=== PATIENT | male | born 1945 | race Caucasian/White ===

== ENCOUNTER 2024-01-07 21:00 | Inpatient (IN) ==
[2024-01-07] MEDS ORDERED: Dextrose 50% Syringe 50 ml 25 GM/50 ML SYRINGE IV PUSH PRN (21:27)
[2024-01-07] MEDS ORDERED: Senna TAB 8.6 mg TAB PO PRN (21:44)
[2024-01-07] MEDS ORDERED: Polyethylene Glycol 3350 17 GM PACKET PO PRN (21:44)
[2024-01-07] MEDS ORDERED: Vancomycin 2,000 MG in NS 0.9% 500 ml BAG 500 ML IVPB ONE (23:00)
[2024-01-07] MEDS ORDERED: Vancomycin per Pharmacy 1 EA NOTE FOLLOW UP SCH (23:00)
[2024-01-07] MEDS ORDERED: Zosyn per Pharmacy NOTE FOLLOW UP SCH (23:00)
[2024-01-07] MEDS: Heparin 5000 UNITS/ML 1 mL VIAL SUBCUT ONE (23:13)
[2024-01-07] MEDS: Acetaminophen IV 1 GM/100ML 1,000 MG/100 ML BAG IV PRN (23:21)
[2024-01-07 23:40] LABS: ABS Basophils 0.2 10^3/uL (0.0-0.1); ABS Eosinophils 0.2 10^3/uL (0.0-0.5); ABS Lymphocytes 0.9 10^3/uL (1.0-4.8); ABS Monocytes 1.5 10^3/uL (0.0-1.1); Eosinophil % 1.1 %; Hematocrit 26.7 % (38-53); Hemoglobin 8.6 g/dL (13.2-16.3); Lymphocyte % 4.9 %; Mean Corpuscular Hemoglobin 18.7 pg (27-33); Mean Corpuscular Hgb Conc 32.1 g/dL (31-36); Mean Corpuscular Volume 58.4 fL (80-97); Mean Platelet Volume 8.2 fL (7.5-11.2); Platelet Count 442 10^3/uL (150-450); Red Blood Count 4.57 10^6/uL (4.06-5.63); Red Cell Distribution Width 16.7 % (12-17); White Blood Count 18.7 10^3/uL (3.6-10.2)
[2024-01-07 23:43] LABS: Activated Partial Thrombo Time 31.3 seconds (26.0-38.0); INR 1.27 (0.83-1.13)
[2024-01-07] MEDS: Cefepime 2 GM in Dextrose 2 GM/50 ML BAG IV SCH (23:48)
[2024-01-08] MEDS ORDERED: Dextrose 50% Syringe 50 ml 25 GM/50 ML SYRINGE IV PUSH PRN (00:02)
[2024-01-08 00:10] LABS: Blood Urea Nitrogen 62 mg/dL (6-24); Creatinine, Serum 3.25 mg/dL (0.67-1.17); eGFR CKD-EPI 18.5 (>60)
[2024-01-08] MEDS: metroNIDAZOLE IV 500 MG/100ML 500 MG/100 ML BAG IVPB SCH ×2 (00:35→15:53)
[2024-01-08 00:36] LABS: Creatine Kinase 51 U/L (10-223)
[2024-01-08] MEDS: Lactated Ringers 1000 ml BAG 1,000 ML IV SCH (01:54)
[2024-01-08 03:33] LABS: Urine Appearance Clear; Urine Bilirubin Negative (Negative); Urine Blood Trace (Negative); Urine Color Light-Yellow; Urine Glucose 1+ (>=70 mg/dL) (Negative); Urine Ketones Negative (Negative); Urine Nitrite Negative (Negative); Urine Protein 2+ (>=100 mg/dL) (Negative); Urine Specific Gravity 1.014 (1.002-1.030); Urine Urobilinogen Negative (Negative); Urine pH 5.5 (5.0-8.0)
[2024-01-08 04:11] LABS: Urine Bacteria Absent /HPF (Absent); Urine Red Blood Cell Absent /HPF (0-Trace); Urine Squamous Epithelial Cell Present /HPF (Absent); Urine White Blood Cell Absent /HPF (0-Trace)
[2024-01-08 04:13] LABS: ABS Basophils 0.1 10^3/uL (0.0-0.1); ABS Eosinophils 0.3 10^3/uL (0.0-0.5); ABS Lymphocytes 1.1 10^3/uL (1.0-4.8); ABS Monocytes 1.6 10^3/uL (0.0-1.1); Eosinophil % 1.4 %; Hemoglobin 8.9 g/dL (13.2-16.3); Lymphocyte % 5.9 %; Mean Corpuscular Hemoglobin 18.4 pg (27-33); Mean Corpuscular Hgb Conc 31.7 g/dL (31-36); Mean Corpuscular Volume 58.1 fL (80-97); Mean Platelet Volume 8.6 fL (7.5-11.2); Platelet Count 488 10^3/uL (150-450); Red Blood Count 4.83 10^6/uL (4.06-5.63); Red Cell Distribution Width 16.7 % (12-17); White Blood Count 19.1 10^3/uL (3.6-10.2)
[2024-01-08 04:18] LABS: Albumin 2.7 g/dL (3.2-5.2); Albumin/Globulin Ratio 0.8 (1-3); Calcium 7.9 mg/dL (8.6-10.3); Creatinine, Serum 3.13 mg/dL (0.67-1.17); Globulin 3.3 g/dL (2-4); Magnesium 1.8 mg/dL (1.9-2.7); Phosphorus 4.5 mg/dL (2.5-5.0); Total Bilirubin 0.3 mg/dL (0.2-1.0); Vancomycin Random 7.7 mcg/mL; eGFR CKD-EPI 19.3 (>60)
[2024-01-08 06:28] LABS: % Iron Saturation 16 % (15-55); .Transferrin 92 mg/dL (203-362); Iron < 20 ug/dL (50-212); Total Iron Binding Capacity 129 mcg/dL (250-450); Unsaturated Iron Binding 109 ug/dL
[2024-01-08 06:48] LABS: Ferritin 474.6 ng/mL (24-336)
[2024-01-08] MEDS: Magnesium Sulfate 2 gm BAG 2 GM/50 ML BAG IVPB ONE (08:53)
[2024-01-08] MEDS ORDERED: Sulfur Hexaflouride MICROSPHR 25 MG VIAL ONE (09:27)
[2024-01-08] MEDS: Vancomycin 1000 MG in NS 0.9% 250 ML IVPB ONE (11:50)
[2024-01-08] MEDS: Vancomycin Random Level NOTE FOLLOW UP ONE (12:33)
[2024-01-08] MEDS ORDERED: Enoxaparin 100 MG/ML SYR SUBCUT SCH (15:00)
[2024-01-08] MEDS: Morphine 2 MG/ML SYRINGE IV PRN (15:52)
[2024-01-08] MEDS: Furosemide 40 mg/4 ml IV VIAL IV SLOW PU ONE (15:53)
[2024-01-09] MEDS: Furosemide 20 mg/2 ml IV VIAL IV ONE (00:57)
[2024-01-09 05:53] LABS: Hematocrit 29.9 % (38-53); Hemoglobin 9.4 g/dL (13.2-16.3); Mean Corpuscular Hemoglobin 18.3 pg (27-33); Mean Corpuscular Hgb Conc 31.4 g/dL (31-36); Mean Corpuscular Volume 58.3 fL (80-97); Mean Platelet Volume 8.5 fL (7.5-11.2); Platelet Count 551 10^3/uL (150-450); Red Blood Count 5.12 10^6/uL (4.06-5.63); Red Cell Distribution Width 16.7 % (12-17)
[2024-01-09 05:54] LABS: ABS Basophils 0.1 10^3/uL (0.0-0.1); ABS Eosinophils 0.2 10^3/uL (0.0-0.5); ABS Lymphocytes 0.9 10^3/uL (1.0-4.8); ABS Monocytes 1.6 10^3/uL (0.0-1.1); ABS Neutrophils 20.2 10^3/uL (1.5-7.6); Eosinophil % 0.9 %; Lymphocyte % 3.8 %
[2024-01-09] MEDS: Vancomycin Random Level NOTE FOLLOW UP ONE (06:00)
[2024-01-09 06:04] LABS: Calcium 8.2 mg/dL (8.6-10.3); Creatinine, Serum 3.08 mg/dL (0.67-1.17); Magnesium 2.2 mg/dL (1.9-2.7); Potassium 5.1 mmol/L (3.5-5.0); Vancomycin Trough 12.4 mcg/mL; eGFR CKD-EPI 19.7 (>60)
[2024-01-09 10:44] LABS: C Reactive Protein 247.83 mg/L (<8.01)
[2024-01-09] MEDS: Furosemide 40 mg/4 ml IV VIAL IV SLOW PU SCH (11:29)
[2024-01-09] MEDS: Vancomycin 1,000 MG - ONCE IVPB ONE (11:29)
[2024-01-09] MEDS ORDERED: Dextrose 50% Syringe 50 ml 25 GM/50 ML SYRINGE IV PUSH PRN (15:47)
[2024-01-10 05:57] LABS: Hematocrit 28.3 % (38-53); Mean Corpuscular Hemoglobin 18.4 pg (27-33); Mean Corpuscular Hgb Conc 31.7 g/dL (31-36); Mean Corpuscular Volume 58.3 fL (80-97); Mean Platelet Volume 8.8 fL (7.5-11.2); Platelet Count 522 10^3/uL (150-450); Red Blood Count 4.85 10^6/uL (4.06-5.63); Red Cell Distribution Width 16.5 % (12-17); White Blood Count 18.3 10^3/uL (3.6-10.2)
[2024-01-10 06:02] LABS: Creatinine, Serum 2.98 mg/dL (0.67-1.17); Magnesium 2.1 mg/dL (1.9-2.7); Potassium 4.7 mmol/L (3.5-5.0); Vancomycin Random 15.9 mcg/mL; eGFR CKD-EPI 20.5 (>60)
[2024-01-10 06:48] LABS: ABS Basophils 0.1 10^3/uL (0.0-0.1); ABS Eosinophils 0.4 10^3/uL (0.0-0.5); ABS Lymphocytes 1.3 10^3/uL (1.0-4.8); ABS Monocytes 1.3 10^3/uL (0.0-1.1); ABS Neutrophils 15.2 10^3/uL (1.5-7.6); ABS Nucleated RBC 0.01 10^3/ul; Eosinophil % 1.9 %; Lymphocyte % 7.3 %; Nucleated Red Blood Cells % 0.1 %/100WBC (0.0-0.8)
[2024-01-10] MEDS: Vancomycin Random Level NOTE FOLLOW UP ONE (08:01)
[2024-01-10] MEDS: Vancomycin 750 MG in NS 0.9% 250 ML IVPB ONE (10:52)
[2024-01-10] MEDS: Furosemide 40 mg/4 ml IV VIAL IV SLOW PU ONE (11:29)
[2024-01-10] MEDS: Insulin GLARGINE 100 un/ml 10 ml VIAL SUBCUT ONE (13:31)
[2024-01-10] MEDS: HYDROmorphone 0.5 MG/0.5 ML SYRINGE IV SLOW PU PRN (22:09)
[2024-01-11] MEDS: HYDROmorphone 0.5 MG/0.5 ML SYRINGE IV SLOW PU PRN (05:59)
[2024-01-11 06:54] LABS: Hematocrit 26.3 % (38-53); Hemoglobin 8.5 g/dL (13.2-16.3); Mean Corpuscular Hemoglobin 18.6 pg (27-33); Mean Corpuscular Hgb Conc 32.4 g/dL (31-36); Mean Corpuscular Volume 57.6 fL (80-97); Mean Platelet Volume 8.5 fL (7.5-11.2); Platelet Count 464 10^3/uL (150-450); Red Blood Count 4.57 10^6/uL (4.06-5.63); Red Cell Distribution Width 16.8 % (12-17); White Blood Count 16.8 10^3/uL (3.6-10.2)
[2024-01-11] MEDS: Vancomycin Random Level NOTE FOLLOW UP ONE (07:30)
[2024-01-11 08:01] LABS: Calcium 7.6 mg/dL (8.6-10.3); Creatinine, Serum 3.17 mg/dL (0.67-1.17); Potassium 4.8 mmol/L (3.5-5.0); Vancomycin Random 17.4 mcg/mL; eGFR CKD-EPI 19.1 (>60)
[2024-01-11] MEDS: Insulin GLARGINE 100 un/ml 10 ml VIAL SUBCUT ONE (08:56)
[2024-01-11] MEDS ORDERED: HYDROmorphone 1 MG/1 ML SYRINGE ONE (11:07)
[2024-01-11] MEDS ORDERED: Acetaminophen IV 1 GM/100ML 1,000 MG/100 ML BAG IV ONE (11:08)
[2024-01-11] MEDS ORDERED: metroNIDAZOLE IV 500 MG/100ML 500 MG/100 ML BAG ONE (11:39)
[2024-01-11] MEDS ORDERED: Bupivacaine 0.5% SDV PF 30ML VIAL ONE (12:10)
[2024-01-11] MEDS ORDERED: HYDROmorphone 1 MG/1 ML SYRINGE IV PRN (12:12)
[2024-01-11] MEDS ORDERED: fentaNYL 100 mcg/2 ml 50 MCG/ML VIAL IV PRN (12:12)
[2024-01-11] MEDS ORDERED: Acetaminophen IV 1 GM/100ML 1,000 MG/100 ML BAG IV PRN (12:12)
[2024-01-11] MEDS ORDERED: Ondansetron 4 mg VIAL 2 MG/ML 2 ml VIAL IV PRN (12:12)
[2024-01-11] MEDS ORDERED: Naloxone 0.4 mg VIAL 0.4 mg/ml 1 ml VIAL IV PRN (12:12)
[2024-01-12 06:50] LABS: Hematocrit 27.4 % (38-53); Hemoglobin 8.7 g/dL (13.2-16.3); Mean Corpuscular Hemoglobin 18.4 pg (27-33); Mean Corpuscular Hgb Conc 31.6 g/dL (31-36); Mean Corpuscular Volume 58.2 fL (80-97); Mean Platelet Volume 8.6 fL (7.5-11.2); Platelet Count 486 10^3/uL (150-450); Red Blood Count 4.72 10^6/uL (4.06-5.63); Red Cell Distribution Width 17.2 % (12-17); White Blood Count 25.6 10^3/uL (3.6-10.2)
[2024-01-12 06:55] LABS: Creatinine, Serum 3.33 mg/dL (0.67-1.17); Potassium 5.7 mmol/L (3.5-5.0); Vancomycin Random 13.6 mcg/mL
[2024-01-12 08:08] LABS: ABS Basophils 0.2 10^3/uL (0.0-0.1); ABS Lymphocytes 0.5 10^3/uL (1.0-4.8); ABS Monocytes 1.2 10^3/uL (0.0-1.1); ABS Neutrophils 23.6 10^3/uL (1.5-7.6); Lymphocyte % 1.8 %
[2024-01-12] MEDS: Vancomycin Random Level NOTE FOLLOW UP ONE (08:20)
[2024-01-12] MEDS: NS 0.9% 1000 ml BAG 1,000 ML IV SCH (10:43)
[2024-01-12] MEDS: ceFAZolin 1 GM ADVAN 1 GM in NS 0.9% 50 ML 50 ML IVPB SCH (12:59)
[2024-01-13 05:51] LABS: Hematocrit 26.3 % (38-53); Hemoglobin 8.1 g/dL (13.2-16.3); Mean Corpuscular Hemoglobin 18.1 pg (27-33); Mean Corpuscular Volume 58.3 fL (80-97); Mean Platelet Volume 8.5 fL (7.5-11.2); Platelet Count 481 10^3/uL (150-450); Red Blood Count 4.51 10^6/uL (4.06-5.63); Red Cell Distribution Width 17.1 % (12-17); White Blood Count 20.4 10^3/uL (3.6-10.2)
[2024-01-13 06:17] LABS: Calcium 7.9 mg/dL (8.6-10.3); Creatinine, Serum 3.38 mg/dL (0.67-1.17); Potassium 5.3 mmol/L (3.5-5.0); eGFR CKD-EPI 17.6 (>60)
[2024-01-13 06:29] LABS: ABS Basophils 0.1 10^3/uL (0.0-0.1); ABS Eosinophils 0.2 10^3/uL (0.0-0.5); ABS Lymphocytes 1.3 10^3/uL (1.0-4.8); ABS Monocytes 2.1 10^3/uL (0.0-1.1); ABS Neutrophils 16.8 10^3/uL (1.5-7.6); Acanthocytes 1+; Anisocytosis 1+; Basophilic Stippling 1+; Eosinophil % 0.8 %; Hypochromasia 1+; Lymphocyte % 6.4 %; Polychromasia 1+; Schistocytes 2+; Tear Drop Cells 1+
[2024-01-13] MEDS ORDERED: Lidocaine 1% VIAL 10 MG/ML 30 ML VIAL ONE (13:40)
[2024-01-13] MEDS ORDERED: Heparin 2 UNITS/ML IVPREMIX 3,000 UNIT/1,500 ML BAG IV ONE (13:41)
[2024-01-13] MEDS ORDERED: Iodixanol 320 (CONTRAST) 100 ML SDV ONE (13:41)
[2024-01-13] MEDS ORDERED: Cefepime 2 GM in Dextrose 2 GM/50 ML BAG IV SCH (15:00)
[2024-01-13] MEDS: Cefepime 1 GM in Dextrose 1 GM/50 ML BAG IV SCH (17:19)
[2024-01-14 06:48] LABS: Creatinine, Serum 3.21 mg/dL (0.67-1.17); eGFR CKD-EPI 18.8 (>60)
[2024-01-14 07:29] LABS: Mean Corpuscular Volume 58.3 fL (80-97)
[2024-01-14 07:30] LABS: Hematocrit 26.6 % (38-53); Hemoglobin 8.3 g/dL (13.2-16.3); Mean Corpuscular Hemoglobin 18.2 pg (27-33); Mean Corpuscular Hgb Conc 31.2 g/dL (31-36); Platelet Count 434 10^3/uL (150-450); Red Blood Count 4.55 10^6/uL (4.06-5.63); Red Cell Distribution Width 17.1 % (12-17); White Blood Count 16.1 10^3/uL (3.6-10.2)
[2024-01-14] MEDS ORDERED: Propofol 10 MG/ML 50 ML BTL ONE (12:00)
[2024-01-14] MEDS ORDERED: Lidocaine 2% PF 5 ML VIAL ONE (14:41)
[2024-01-14] MEDS ORDERED: fentaNYL 100 mcg/2 ml 50 MCG/ML VIAL ONE ×2 (14:42→18:56)
[2024-01-14] MEDS ORDERED: Midazolam 2 mg/2 ml VIAL 1 mg/ml 2 ml VIAL (2 mg) ONE (14:42)
[2024-01-14] MEDS ORDERED: Rocuronium 50 mg VIAL 10 mg/ml 5 ml VIAL (50 mg) ONE (14:42)
[2024-01-14] MEDS ORDERED: Propofol 10 MG/ML 20 ML BTL ONE (14:44)
[2024-01-14] MEDS ORDERED: Dexmedetomidine 200 mcg/2 ml 2 ml VIAL (200 mcg) ONE ×2 (15:14→18:17)
[2024-01-14] MEDS ORDERED: Lidocaine 1% VIAL 10 MG/ML 30 ML VIAL ONE (16:03)
[2024-01-14] MEDS ORDERED: Iodixanol 320 (CONTRAST) 100 ML SDV ONE (16:03)
[2024-01-14] MEDS ORDERED: Heparin 2 UNITS/ML IVPREMIX 3,000 UNIT/1,500 ML BAG IV ONE (16:04)
[2024-01-14] MEDS ORDERED: Heparin 1,000 UNIT/ML 10 ml (10,000 UNITS) CATHLAB/DIALYSIS ONE (16:28)
[2024-01-14] MEDS ORDERED: Naloxone 0.4 mg VIAL 0.4 mg/ml 1 ml VIAL IV PRN (16:50)
[2024-01-14] MEDS ORDERED: Haloperidol 5 mg/ml SDV IV/IM 5 MG/ML AMP ONE (17:59)
[2024-01-14] MEDS: Haloperidol 5 mg/ml SDV IV/IM 5 MG/ML AMP IV SLOW PU ONE (18:18)
[2024-01-14] MEDS: fentaNYL 100 mcg/2 ml 50 MCG/ML VIAL IV PRN (18:58)
[2024-01-14] MEDS ORDERED: Heparin 5000 UNITS/ML 1 mL VIAL SUBCUT SCH (20:00)
[2024-01-14] MEDS: Heparin 5000 UNITS/ML 1 mL VIAL SUBCUT SCH (22:25)
[2024-01-15 07:03] LABS: Hematocrit 26.9 % (38-53); Hemoglobin 8.4 g/dL (13.2-16.3); Mean Corpuscular Hemoglobin 18.2 pg (27-33); Mean Corpuscular Hgb Conc 31.2 g/dL (31-36); Mean Corpuscular Volume 58.4 fL (80-97); Mean Platelet Volume 8.1 fL (7.5-11.2); Platelet Count 429 10^3/uL (150-450); Red Blood Count 4.61 10^6/uL (4.06-5.63); Red Cell Distribution Width 17.5 % (12-17); White Blood Count 14.5 10^3/uL (3.6-10.2)
[2024-01-15 07:37] LABS: Calcium 7.5 mg/dL (8.6-10.3); Creatinine, Serum 3.28 mg/dL (0.67-1.17); Magnesium 1.9 mg/dL (1.9-2.7); Potassium 4.7 mmol/L (3.5-5.0); eGFR CKD-EPI 18.3 (>60)
[2024-01-15 08:19] LABS: ABS Basophils 0.1 10^3/uL (0.0-0.1); ABS Eosinophils 0.4 10^3/uL (0.0-0.5); ABS Lymphocytes 0.9 10^3/uL (1.0-4.8); ABS Monocytes 1.3 10^3/uL (0.0-1.1); ABS Neutrophils 11.8 10^3/uL (1.5-7.6); ABS Nucleated RBC 0.01 10^3/ul; Anisocytosis 1+; Eosinophil % 2.8 %; Hypochromasia 2+; Lymphocyte % 6.4 %; Microcytosis 3+; Polychromasia 1+; Target Cells 1+
[2024-01-15] MEDS: Magnesium Sulfate 2 gm BAG 2 GM/50 ML BAG IVPB ONE (10:05)
[2024-01-16 07:24] LABS: ABS Basophils 0.1 10^3/uL (0.0-0.1); ABS Eosinophils 0.5 10^3/uL (0.0-0.5); ABS Lymphocytes 0.8 10^3/uL (1.0-4.8); ABS Monocytes 1.3 10^3/uL (0.0-1.1); ABS Neutrophils 11.3 10^3/uL (1.5-7.6); ABS Nucleated RBC 0.01 10^3/ul; Eosinophil % 3.6 %; Hematocrit 25.8 % (38-53); Hemoglobin 8.2 g/dL (13.2-16.3); Lymphocyte % 5.4 %; Mean Corpuscular Hemoglobin 18.5 pg (27-33); Mean Corpuscular Hgb Conc 31.9 g/dL (31-36); Mean Corpuscular Volume 58.1 fL (80-97); Mean Platelet Volume 8.9 fL (7.5-11.2); Platelet Count 443 10^3/uL (150-450); Red Blood Count 4.44 10^6/uL (4.06-5.63); Red Cell Distribution Width 17.3 % (12-17)
[2024-01-16 07:47] LABS: Calcium 7.4 mg/dL (8.6-10.3); Creatinine, Serum 3.18 mg/dL (0.67-1.17); Magnesium 2.1 mg/dL (1.9-2.7); Potassium 4.6 mmol/L (3.5-5.0)
[2024-01-16] MEDS: Insulin GLARGINE 100 un/ml 10 ml VIAL SUBCUT SCH (13:00)
[2024-01-16] MEDS: Insulin GLARGINE 100 un/ml 10 ml VIAL ONE (13:08)
[2024-01-16] MEDS ORDERED: Enoxaparin 100 MG/ML SYR SUBCUT SCH (16:00)
[2024-01-17 11:29] LABS: Hematocrit 28.8 % (38-53); Hemoglobin 8.9 g/dL (13.2-16.3); Mean Corpuscular Hemoglobin 18.1 pg (27-33); Mean Corpuscular Volume 58.3 fL (80-97); Mean Platelet Volume 8.4 fL (7.5-11.2); Platelet Count 499 10^3/uL (150-450); Red Blood Count 4.95 10^6/uL (4.06-5.63); Red Cell Distribution Width 17.1 % (12-17); White Blood Count 16.1 10^3/uL (3.6-10.2)
[2024-01-17 12:10] LABS: Calcium 7.9 mg/dL (8.6-10.3); Creatinine, Serum 3.26 mg/dL (0.67-1.17); Potassium 5.3 mmol/L (3.5-5.0); eGFR CKD-EPI 18.4 (>60)
[2024-01-17 12:15] LABS: ABS Basophils 0.1 10^3/uL (0.0-0.1); ABS Eosinophils 0.7 10^3/uL (0.0-0.5); ABS Monocytes 1.4 10^3/uL (0.0-1.1); ABS Neutrophils 12.9 10^3/uL (1.5-7.6); ABS Nucleated RBC 0.01 10^3/ul; Eosinophil % 4.1 %; Lymphocyte % 6.5 %; Nucleated Red Blood Cells % 0.1 %/100WBC (0.0-0.8)
[2024-01-17 12:16] LABS: Acanthocytes 1+; Anisocytosis 2+; Basophilic Stippling 1+; Burr Cells 1+; Hypochromasia 2+; Microcytosis 2+; Polychromasia 1+; Schistocytes 1+; Target Cells 2+; Tear Drop Cells 1+
[2024-01-18 06:31] LABS: Hematocrit 25.9 % (38-53); Hemoglobin 8.2 g/dL (13.2-16.3); Mean Corpuscular Hemoglobin 18.5 pg (27-33); Mean Corpuscular Hgb Conc 31.5 g/dL (31-36); Mean Corpuscular Volume 58.7 fL (80-97); Mean Platelet Volume 8.3 fL (7.5-11.2); Platelet Count 436 10^3/uL (150-450); Red Blood Count 4.42 10^6/uL (4.06-5.63); White Blood Count 14.5 10^3/uL (3.6-10.2)
[2024-01-18 06:42] LABS: Calcium 7.6 mg/dL (8.6-10.3); Creatinine, Serum 3.34 mg/dL (0.67-1.17); Magnesium 1.9 mg/dL (1.9-2.7); Potassium 5.4 mmol/L (3.5-5.0); eGFR CKD-EPI 17.9 (>60)
[2024-01-18] MEDS: Magnesium Sulfate 2 gm BAG 2 GM/50 ML BAG IVPB ONE (08:18)
[2024-01-19 06:26] LABS: ABS Basophils 0.1 10^3/uL (0.0-0.1); ABS Eosinophils 0.8 10^3/uL (0.0-0.5); ABS Lymphocytes 0.9 10^3/uL (1.0-4.8); ABS Monocytes 1.3 10^3/uL (0.0-1.1); ABS Neutrophils 11.5 10^3/uL (1.5-7.6); ABS Nucleated RBC 0.01 10^3/ul; Eosinophil % 5.7 %; Hematocrit 26.8 % (38-53); Hemoglobin 8.4 g/dL (13.2-16.3); Lymphocyte % 5.9 %; Mean Corpuscular Hemoglobin 18.6 pg (27-33); Mean Corpuscular Hgb Conc 31.5 g/dL (31-36); Mean Corpuscular Volume 58.9 fL (80-97); Mean Platelet Volume 8.7 fL (7.5-11.2); Platelet Count 456 10^3/uL (150-450); Red Blood Count 4.54 10^6/uL (4.06-5.63); Red Cell Distribution Width 17.8 % (12-17); White Blood Count 14.6 10^3/uL (3.6-10.2)
[2024-01-19 06:37] LABS: Creatinine, Serum 3.62 mg/dL (0.67-1.17); Magnesium 2.2 mg/dL (1.9-2.7); Potassium 5.4 mmol/L (3.5-5.0); eGFR CKD-EPI 16.2 (>60)
[2024-01-19] MEDS: Sodium Polystyrene ORAL.SUSP 15 GM/60 ML BTL PO ONE (11:04)
[2024-01-20 07:06] LABS: ABS Basophils 0.1 10^3/uL (0.0-0.1); ABS Eosinophils 0.5 10^3/uL (0.0-0.5); ABS Lymphocytes 0.7 10^3/uL (1.0-4.8); ABS Monocytes 1.4 10^3/uL (0.0-1.1); ABS Neutrophils 12.1 10^3/uL (1.5-7.6); ABS Nucleated RBC 0.01 10^3/ul; Eosinophil % 3.5 %; Hematocrit 26.3 % (38-53); Hemoglobin 8.2 g/dL (13.2-16.3); Mean Corpuscular Hemoglobin 18.3 pg (27-33); Mean Corpuscular Hgb Conc 31.2 g/dL (31-36); Mean Corpuscular Volume 58.7 fL (80-97); Mean Platelet Volume 8.6 fL (7.5-11.2); Platelet Count 390 10^3/uL (150-450); Red Blood Count 4.48 10^6/uL (4.06-5.63); Red Cell Distribution Width 17.9 % (12-17); White Blood Count 14.9 10^3/uL (3.6-10.2)
[2024-01-20 07:32] LABS: Calcium 7.8 mg/dL (8.6-10.3); Creatinine, Serum 3.96 mg/dL (0.67-1.17); Magnesium 2.2 mg/dL (1.9-2.7); Potassium 5.1 mmol/L (3.5-5.0); eGFR CKD-EPI 14.6 (>60)
[2024-01-20 10:17] VITALS: BP 170/52
[2024-01-20 13:20] LABS: Rapid COVID-19 Molecular Undetected (Undetected)
== END 2024-01-20 14:15 | DRG 853 ==
LOC: SUATTDRO 21:07 → SSU 21:07
PROVIDERS: ADMIT Internal Medicine; ATTEND Internal Medicine
PROC: ANG.PRO (2024-01-14 15:15)

== ENCOUNTER 2024-01-27 15:16 | Inpatient (IN) ==
[2024-01-27] MEDS ORDERED: Furosemide 100 mg/10 ml IV VIAL IV ONE (17:28)
[2024-01-27 18:54] LABS: Hematocrit 24.9 % (38-53); Hemoglobin 7.9 g/dL (13.2-16.3); Mean Corpuscular Hemoglobin 18.8 pg (27-33); Mean Corpuscular Hgb Conc 31.7 g/dL (31-36); Mean Corpuscular Volume 59.3 fL (80-97); Mean Platelet Volume 8.9 fL (7.5-11.2); Platelet Count 254 10^3/uL (150-450); Red Cell Distribution Width 18.7 % (12-17); White Blood Count 12.4 10^3/uL (3.6-10.2)
[2024-01-27 18:58] LABS: Albumin 2.9 g/dL (3.2-5.2); Albumin/Globulin Ratio 0.9 (1-3); Calcium 7.2 mg/dL (8.6-10.3); Creatinine, Serum 7.89 mg/dL (0.67-1.17); Globulin 3.1 g/dL (2-4); Magnesium 1.9 mg/dL (1.9-2.7); Potassium 5.9 mmol/L (3.5-5.0); Total Bilirubin 0.3 mg/dL (0.2-1.0); eGFR CKD-EPI 6.4 (>60)
[2024-01-27 19:39] LABS: ABS Eosinophils 0.9 10^3/uL (0.0-0.5); ABS Lymphocytes 0.3 10^3/uL (1.0-4.8); ABS Monocytes 1.1 10^3/uL (0.0-1.1); ABS Neutrophils 10.1 10^3/uL (1.5-7.6); ABS Nucleated RBC 0.01 10^3/ul; Acanthocytes 1+; Anisocytosis 1+; Hypochromasia 1+; Lymphocyte % 2.4 %; Microcytosis 3+; Nucleated Red Blood Cells % 0.1 %/100WBC (0.0-0.8)
[2024-01-27] MEDS: Furosemide IV 100 MG in NS 0.9% 100 ML TOTAL IV SCH (21:29)
[2024-01-27] MEDS ORDERED: NS 0.9% 1000 ml BAG 200 ML IV PRN (21:52)
[2024-01-27] MEDS ORDERED: NS 0.9% 1000 ml BAG 100 ML IV PRN (21:52)
[2024-01-27] MEDS ORDERED: Albumin Human 25% 25 GM/100 ML BTL IV PRN (21:52)
[2024-01-27] MEDS: Furosemide IV 100 MG in NS 0.9% 100 ML TOTAL IV ONE (23:30)
[2024-01-27 23:47] LABS: Urine Appearance Clear; Urine Bilirubin Negative (Negative); Urine Blood 3+ (Negative); Urine Color Colorless; Urine Glucose 1+ (>=70 mg/dL) (Negative); Urine Ketones Negative (Negative); Urine Nitrite Negative (Negative); Urine Protein 2+ (>=100 mg/dL) (Negative); Urine Specific Gravity 1.012 (1.002-1.030); Urine Urobilinogen Negative (Negative); Urine pH 5.5 (5.0-8.0)
[2024-01-28 00:03] LABS: Urine Bacteria Absent /HPF (Absent); Urine Red Blood Cell 3+(>10/hpf) /HPF (0-Trace); Urine Squamous Epithelial Cell Present /HPF (Absent); Urine White Blood Cell 1+(6-10/hpf) /HPF (0-Trace)
[2024-01-28 03:39] LABS: Hepatitis B Surface Ab Not Immune (Immune)
[2024-01-28] MEDS: Insulin GLARGINE 100 un/ml 10 ml VIAL SUBCUT SCH (09:29)
[2024-01-28] MEDS: SODIUM ZIRCONIUM CYCLOSILICATE 5 GM PACKET PO ONE (09:37)
[2024-01-28 09:50] LABS: ABS Eosinophils 0.6 10^3/uL (0.0-0.5); ABS Lymphocytes 0.5 10^3/uL (1.0-4.8); ABS Neutrophils 9.3 10^3/uL (1.5-7.6); ABS Nucleated RBC 0.01 10^3/ul; Eosinophil % 5.2 %; Hemoglobin 7.9 g/dL (13.2-16.3); Lymphocyte % 4.6 %; Mean Corpuscular Hemoglobin 18.5 pg (27-33); Mean Corpuscular Hgb Conc 31.5 g/dL (31-36); Mean Corpuscular Volume 58.6 fL (80-97); Mean Platelet Volume 8.9 fL (7.5-11.2); Nucleated Red Blood Cells % 0.1 %/100WBC (0.0-0.8); Platelet Count 261 10^3/uL (150-450); Red Blood Count 4.26 10^6/uL (4.06-5.63); Red Cell Distribution Width 19.3 % (12-17); White Blood Count 11.4 10^3/uL (3.6-10.2)
[2024-01-28 10:10] LABS: Calcium 7.2 mg/dL (8.6-10.3); Creatinine, Serum 8.19 mg/dL (0.67-1.17); Magnesium 1.9 mg/dL (1.9-2.7); Potassium 6.1 mmol/L (3.5-5.0); eGFR CKD-EPI 6.1 (>60)
[2024-01-28 10:55] LABS: Hepatitis B Surface Antigen Nonreactive (Nonreactive)
[2024-01-28] MEDS: Heparin 1,000 UNIT/ML 10 ml (10,000 UNITS) CATHLAB/DIALYSIS DIALYSIS PRN (13:25)
[2024-01-28] MEDS: ceFAZolin 500 MG VIAL 500 MG in NS 0.9% 50 ML 50 ML IVPB SCH (21:51)
[2024-01-29 08:29] LABS: Calcium 7.2 mg/dL (8.6-10.3); Creatinine, Serum 6.28 mg/dL (0.67-1.17); Magnesium 1.7 mg/dL (1.9-2.7); Potassium 4.6 mmol/L (3.5-5.0); eGFR CKD-EPI 8.4 (>60)
[2024-01-29] MEDS: Polyethylene Glycol 3350 17 GM PACKET PO PRN (13:38)
[2024-01-29] MEDS: Magnesium Sulfate 2 gm BAG 2 GM/50 ML BAG IVPB ONE (17:42)
[2024-01-29] MEDS: ceFAZolin 1 GM ADVAN 1 GM in NS 0.9% 50 ML 50 ML IVPB SCH (22:04)
[2024-01-29] MEDS: Senna TAB 8.6 mg TAB PO PRN (22:13)
[2024-01-30 07:12] LABS: Calcium 7.2 mg/dL (8.6-10.3); Creatinine, Serum 5.15 mg/dL (0.67-1.17); Potassium 4.9 mmol/L (3.5-5.0); eGFR CKD-EPI 10.6 (>60)
[2024-01-30 08:24] LABS: Hematocrit 23.2 % (38-53); Hemoglobin 7.6 g/dL (13.2-16.3); Mean Corpuscular Hgb Conc 32.7 g/dL (31-36); Mean Corpuscular Volume 58.3 fL (80-97); Mean Platelet Volume 9.3 fL (7.5-11.2); Platelet Count 273 10^3/uL (150-450); Red Blood Count 3.98 10^6/uL (4.06-5.63); Red Cell Distribution Width 19.7 % (12-17); White Blood Count 10.6 10^3/uL (3.6-10.2)
[2024-01-30 10:04] LABS: ABS Basophils 0.2 10^3/uL (0.0-0.1); ABS Eosinophils 0.6 10^3/uL (0.0-0.5); ABS Lymphocytes 1.8 10^3/uL (1.0-4.8); ABS Monocytes 1.4 10^3/uL (0.0-1.1); ABS Neutrophils 6.7 10^3/uL (1.5-7.6); ABS Nucleated RBC 0.01 10^3/ul; Eosinophil % 5.4 %; Lymphocyte % 16.9 %; Nucleated Red Blood Cells % 0.1 %/100WBC (0.0-0.8)
[2024-01-30] MEDS: Insulin GLARGINE 100 un/ml 10 ml VIAL SUBCUT SCH (11:41)
[2024-01-31 07:17] LABS: Calcium 7.9 mg/dL (8.6-10.3); Creatinine, Serum 4.69 mg/dL (0.67-1.17); Magnesium 1.9 mg/dL (1.9-2.7); Potassium 4.7 mmol/L (3.5-5.0); eGFR CKD-EPI 11.9 (>60)
[2024-01-31 09:02] LABS: ABS Basophils 0.1 10^3/uL (0.0-0.1); ABS Eosinophils 0.7 10^3/uL (0.0-0.5); ABS Lymphocytes 1.3 10^3/uL (1.0-4.8); ABS Monocytes 1.3 10^3/uL (0.0-1.1); ABS Neutrophils 6.9 10^3/uL (1.5-7.6); ABS Nucleated RBC 0.02 10^3/ul; Anisocytosis 2+; Eosinophil % 6.8 %; Hematocrit 26.5 % (38-53); Hemoglobin 8.3 g/dL (13.2-16.3); Hypochromasia 1+; Lymphocyte % 12.3 %; Mean Corpuscular Hemoglobin 18.6 pg (27-33); Mean Corpuscular Hgb Conc 31.3 g/dL (31-36); Mean Corpuscular Volume 59.5 fL (80-97); Mean Platelet Volume 8.9 fL (7.5-11.2); Microcytosis 3+; Nucleated Red Blood Cells % 0.2 %/100WBC (0.0-0.8); Platelet Count 305 10^3/uL (150-450); Red Blood Count 4.45 10^6/uL (4.06-5.63); Red Cell Distribution Width 20.1 % (12-17); Schistocytes 1+; Tear Drop Cells 1+; White Blood Count 10.3 10^3/uL (3.6-10.2)
[2024-02-02 05:03] LABS: ABS Basophils 0.2 10^3/uL (0.0-0.1); ABS Eosinophils 0.9 10^3/uL (0.0-0.5); ABS Monocytes 1.4 10^3/uL (0.0-1.1); ABS Neutrophils 7.3 10^3/uL (1.5-7.6); ABS Nucleated RBC 0.02 10^3/ul; Eosinophil % 8.1 %; Hematocrit 25.3 % (38-53); Lymphocyte % 9.6 %; Mean Corpuscular Hgb Conc 31.8 g/dL (31-36); Mean Corpuscular Volume 59.7 fL (80-97); Mean Platelet Volume 8.2 fL (7.5-11.2); Nucleated Red Blood Cells % 0.2 %/100WBC (0.0-0.8); Platelet Count 259 10^3/uL (150-450); Red Blood Count 4.23 10^6/uL (4.06-5.63); Red Cell Distribution Width 19.2 % (12-17); White Blood Count 10.8 10^3/uL (3.6-10.2)
[2024-02-02 05:11] LABS: Calcium 6.8 mg/dL (8.6-10.3); Creatinine, Serum 3.77 mg/dL (0.67-1.17); Potassium 3.4 mmol/L (3.5-5.0); eGFR CKD-EPI 15.5 (>60)
[2024-02-02] MEDS ORDERED: fentaNYL 100 mcg/2 ml 50 MCG/ML VIAL ONE (13:45)
[2024-02-02] MEDS ORDERED: Lidocaine 1% MPF 5 ML VIAL ONE ×2 (13:45→13:54)
[2024-02-02] MEDS ORDERED: Midazolam 5 mg/5 ml VIAL 1 mg/ml 5 ml VIAL (5 mg) ONE (13:45)
[2024-02-02] MEDS ORDERED: Heparin 2 UNITS/ML 1000 mls 1,000 ML IV ONE (14:00)
[2024-02-02] MEDS ORDERED: Heparin 1,000 UNIT/ML 10 ml (10,000 UNITS) CATHLAB/DIALYSIS ONE (14:31)
[2024-02-02] MEDS ORDERED: fentaNYL 250 mcg/5 ml 50 MCG/ML 5 ml VIAL (250 MCG) ONE (14:40)
[2024-02-04 11:59] VITALS: BP 117/63
== END 2024-02-04 15:00 | DRG 292 ==
LOC: MEDTELE 15:16 → SUATTDRO 16:41
PROVIDERS: ADMIT Student in an Organized Health Care Education/Training Program; ATTEND Internal Medicine